=== PATIENT | male | born 1960 | race Caucasian/White ===

== ENCOUNTER → 2016-04-07 | Outpatient (CLI) | payer MEDICAID | LOC: OD 09:56 | PROVIDERS: ATTEND Family Medicine | DX: M25.571 Pain in right ankle and joints of right foot (principal) ==

== ENCOUNTER → 2016-04-19 | Outpatient (CLI) | payer MEDICAID | LOC: RAD 14:10 | PROVIDERS: ATTEND Family Medicine | DX: M51.36 Other intervertebral disc degeneration, lumbar region (principal); N63 Unspecified lump in breast | CPT/HCPCS: 72148; 82565 ==

== ENCOUNTER → 2016-05-04 | Outpatient (CLI) | payer MEDICAID | LOC: WI 08:14 | PROVIDERS: ATTEND Family Medicine | DX: M51.36 Other intervertebral disc degeneration, lumbar region (principal); N63 Unspecified lump in breast | CPT/HCPCS: 76641; G0204; 77066 ==

== ENCOUNTER 2017-05-19 16:39 | Inpatient (IN) | payer MEDICAID ==
[2017-05-19] MEDS ORDERED: ACETAMINOPHEN 325 MG TABLET PO ONE (16:58)
[2017-05-19] MEDS ORDERED: CEFTRIAXONE INJ 1000 MG VIAL IV ONE (16:58)
--- NOTE | 2017-05-19 17:14 | ER Document Report ---
ED Medical Screen (RME) - General Chief Complaint: Fever Stated Complaint: DIFFICULTY BREATHING Time Seen by Provider: 05/19/17 16:58 Mode of Arrival: Wheelchair Information source: Patient Notes: 56-year-old male presents with complaints of fever cough yellow productive shortness of breath nausea vomiting diarrhea headache of 4 day duration patient noted to be febrile tachycardic hypoxic upon arrival I have greeted and performed a rapid initial assessment of this patient. A comprehensive ED assessment and evaluation of the patient, analysis of test results and completion of the medical decision making process will be conducted by additional ED providers. PHYSICAL EXAMINATION: GENERAL:ill-appearing, HEAD: Atraumatic, normocephalic. EYES: Pupils equal round extraocular movements intact, conjunctiva are normal. ENT: Nares patent NECK: Normal range of motion LUNGS:crackles at the right base Musculoskeletal: Normal range of motion NEUROLOGICAL: Normal speech, normal gait. PSYCH: Normal mood, normal affect. SKIN: Warm, Dry, normal turgor, no rashes or lesions noted. TRAVEL OUTSIDE OF THE [place] IN LAST 30 DAYS: No - Related Data Allergies/Adverse Reactions: erythromycin base Allergy (Verified 08/27/15 15:02) Past Medical History - Social History Chew tobacco use (# tins/day): No Frequency of alcohol use: None Drug Abuse: None - Past Medical History Cardiac Medical History: Reports: Hx DVT, Hx Hypertension Renal/ Medical History: Denies: Hx Peritoneal Dialysis Malignancy Medical History: Reports Hx Renal (Kidney) Cancer GI Medical History: Reports: Hx Gastroesophageal Reflux Disease Musculoskeltal Medical History: Reports Hx Arthritis Traumatic Medical History: Reports: Hx Fractures Past Surgical History: Reports: Hx Orthopedic Surgery - right ankle, Hx Tonsillectomy Physical Exam - Vital signs Vitals: Temp Pulse Resp BP Pulse Ox 101.0 F H 117 H 16 135/83 H 93 05/19/17 16:52 05/19/17 16:52 05/19/17 16:52 05/19/17 16:52 05/19/17 16:52 Course - Vital Signs Vital signs: Temp Pulse Resp BP Pulse Ox 101.0 F H 117 H 16 135/83 H 93 05/19/17 16:52 05/19/17 16:52 05/19/17 16:52 05/19/17 16:52 05/19/17 16:52
[2017-05-19 17:56] LABS: VENOUS BLOOD BASE EXCESS 3.3 mmol/L; VENOUS BLOOD PCO2 42.6 mmHg (35-63); VENOUS BLOOD PH 7.44 (7.30-7.42)
[2017-05-19 17:58] LABS: ABSOLUTE LYMPHOCYTES (AUTO) 1.7 10^3/uL (0.5-4.7); ABSOLUTE MONOCYTES (AUTO) 0.7 10^3/uL (0.1-1.4); ABSOLUTE NEUT (AUTO) 16.6 10^3/uL (1.7-8.2); BASOPHILS % (AUTO) 0.1 % (0-2); EOSINOPHILS % (AUTO) 0.1 % (0-6); HEMOGLOBIN 15.6 g/dL (13.5-17.0); MEAN CORPUSCULAR HEMOGLOBIN 30.7 pg (27.0-33.4); MEAN CORPUSCULAR HGB CONC 34.7 g/dL (32.0-36.0); MEAN CORPUSCULAR VOLUME 89 fl (80-97); MONOCYTES % (AUTO) 3.6 % (3-13); PLATELET COUNT 172 10^3/uL (150-450); RED BLOOD COUNT 5.07 10^6/uL (4.35-5.55); RED CELL DISTRIBUTION WIDTH 13.2 % (11.5-14.0); SEGMENTED NEUTROPHILS % (AUTO) 87.2 % (42-78); TOTAL CELLS COUNTED % (AUTO) 100 %
[2017-05-19 18:18] LABS: INTERNATIONAL RATION (INR) 1.01
[2017-05-19 18:20] LABS: ALANINE AMINOTRANSFERASE 26 U/L (21-72); ALBUMIN 4.4 g/dL (3.5-5.0); ALKALINE PHOSPHATASE 68 U/L (38-126); ANION GAP 12 (5-19); ASPARTATE AMINO TRANSFERASE 16 U/L (17-59); BILIRUBIN,DIRECT 0.4 mg/dL (0.0-0.4); BILIRUBIN,TOTAL 1.1 mg/dL (0.2-1.3); BLOOD UREA NITROGEN 18 mg/dL (7-20); CALCIUM 9.8 mg/dL (8.4-10.2); CARBON DIOXIDE 27 mmol/L (22-30); CHLORIDE 100 mmol/L (98-107); GLUCOSE 123 mg/dL (75-110); POTASSIUM 4.8 mmol/L (3.6-5.0); SODIUM 138.8 mmol/L (137-145); TOTAL PROTEIN 7.6 g/dL (6.3-8.2)
--- NOTE | 2017-05-19 18:24 | RADIOLOGY REPORT (SQ) ---
EXAM DESCRIPTION: CHEST PA/LAT COMPLETED DATE/TIME: 05/19/2017 6:11 pm REASON FOR STUDY: fever cough , hypoxemia COMPARISON: 03/08/2009 EXAM PARAMETERS: NUMBER OF VIEWS: two views TECHNIQUE: Digital Frontal and Lateral radiographic views of the chest acquired. RADIATION DOSE: NA LIMITATIONS: none FINDINGS: LUNGS AND PLEURA: Multifocal airspace disease most notably involving the right upper lobe and right middle lobe. MEDIASTINUM AND HILAR STRUCTURES: No masses or contour abnormalities. HEART AND VASCULAR STRUCTURES: Heart normal size. No evidence for failure. BONES: No acute findings. HARDWARE: None in the chest. OTHER: No other significant finding. IMPRESSION: MULTIFOCAL AIRSPACE DISEASE COMPATIBLE WITH PNEUMONIA. RECOMMEND FOLLOWUP RADIOGRAPHS 4 TO 6 WEEKS TO ENSURE RESOLUTION. TECHNICAL DOCUMENTATION: JOB ID: [id number] [employer]- All Rights Reserved Reading location - IP/workstation name: [email or web address]
--- NOTE | 2017-05-19 18:38 | ER Document Report ---
ED Fever - General Chief Complaint: Fever Stated Complaint: DIFFICULTY BREATHING Time Seen by Provider: 05/19/17 16:58 Mode of Arrival: Wheelchair Notes: 56-year-old male recent history of feeling sick. History of what he describes as flu several days ago. Began having chest pain and shortness of breath. Intermittent smoker. Fever at home. Has a previous history of blood clots in his legs. Denies any recent skin infections, dog bites, human bites, trauma or any other issues. TRAVEL OUTSIDE OF THE [place] IN LAST 30 DAYS: No - HPI Severity: Moderate Pain Level: 3 - Related Data Allergies/Adverse Reactions: erythromycin base Allergy (Verified 08/27/15 15:02) Past Medical History - General Information source: Patient - Social History Smoking Status: Current Every Day Smoker Chew tobacco use (# tins/day): No Frequency of alcohol use: None Drug Abuse: None Lives with: Family Family History: Reviewed & Not Pertinent Patient has suicidal ideation: No Patient has homicidal ideation: No - Past Medical History Cardiac Medical History: Reports: Hx DVT, Hx Hypertension Renal/ Medical History: Denies: Hx Peritoneal Dialysis Malignancy Medical History: Reports Hx Renal (Kidney) Cancer GI Medical History: Reports: Hx Gastroesophageal Reflux Disease Musculoskeltal Medical History: Reports Hx Arthritis Traumatic Medical History: Reports: Hx Fractures Past Surgical History: Reports: Hx Orthopedic Surgery - right ankle, Hx Tonsillectomy Review of Systems - Review of Systems Constitutional: Fever, Malaise, Weakness EENT: No symptoms reported Cardiovascular: Chest pain, Palpitations, Dizziness, Lightheaded Respiratory: Cough, Short of breath, Wheezing Gastrointestinal: denies: Abdominal pain, Diarrhea, Nausea, Vomiting Genitourinary: denies: Burning, Dysuria, Discharge Musculoskeletal: denies: Back pain, Joint pain, Muscle pain Skin: denies: Dryness, Lesions, Lumps, Rash Hematologic/Lymphatic: Blood clots. denies: Anemia, Easy bleeding, Easy bruising Neurological/Psychological: denies: Confusion, Weakness, Numbness Physical Exam - Vital signs Vitals: Temp Pulse Resp BP Pulse Ox 101.0 F H 117 H 16 135/83 H 93 05/19/17 16:52 05/19/17 16:52 05/19/17 16:52 05/19/17 16:52 05/19/17 16:52 Interpretation: Tachycardic - General General appearance: Appears well, Alert - HEENT Head: Normocephalic, Atraumatic Eyes: Normal Pupils: PERRL - Respiratory Respiratory status: No respiratory distress Chest status: Nontender Breath sounds: Nonproductive cough, Rales Chest palpation: Normal - Cardiovascular Rhythm: Tachycardia Heart sounds: Normal auscultation Murmur: No - Abdominal Inspection: Normal Distension: No distension Bowel sounds: Normal Tenderness: Nontender Organomegaly: No organomegaly - Back Back: Normal, Nontender - Extremities General upper extremity: Normal inspection, Nontender, Normal color, Normal ROM , Normal temperature General lower extremity: Normal inspection, Nontender, Normal color, Normal ROM , Normal temperature, Normal weight bearing. No: Araceli's sign - Neurological Neuro grossly intact: Yes Cognition: Normal Orientation: AAOx4 Ha Coma Scale Eye Opening: Spontaneous [place] Coma Scale Verbal: Oriented [place] Coma Scale Motor: Obeys Commands [place] Coma Scale Total: 15 Speech: Normal Motor strength normal: LUE, RUE, LLE, RLE Sensory: Normal - Psychological Associated symptoms: Normal affect, Normal mood - Skin Skin Temperature: Warm Skin Moisture: Dry Skin Color: Normal Course - Re-evaluation Re-evalutation: 05/19/17 18:38 Patient with evidence of pneumonia based on WBC count, auscultation as well as chest x-ray. Started on IV antibiotics at this time. Need to be admitted. 05/19/17 19:15 Consulted the hospitalist. IV antibiotics started will admit to telemetry at this time. We will go ahead and add a CT angiogram based on his history of blood clots. - Vital Signs Vital signs: Temp Pulse Resp BP Pulse Ox 101.0 F H 117 H 12 145/83 H 95 05/19/17 16:52 05/19/17 16:52 05/19/17 19:01 05/19/17 19:00 05/19/17 19:01 - Laboratory Result Diagrams: 05/19/17 17:30 05/19/17 17:30 Laboratory results interpreted by me: 05/19/17 05/19/17 05/19/17 17:21 17:30 17:30 WBC 19.0 H Seg Neutrophils % 87.2 H Lymphocytes % 9.0 L Absolute Neutrophils 16.6 H VBG pH Glucose 123 H POC Glucose 125 H AST 16 L Urine Protein Urine Ketones Urine Blood Urine Urobilinogen 05/19/17 05/19/17 17:30 18:20 WBC Seg Neutrophils % Lymphocytes % Absolute Neutrophils VBG pH 7.44 H Glucose POC Glucose AST Urine Protein 100 H Urine Ketones TRACE H Urine Blood SMALL H Urine Urobilinogen 4.0 H - EKG Interpretation by Me EKG shows normal: [place], Intervals, QRS Complexes, ST-T Waves Rate: Tachycardia Discharge - Discharge Clinical Impression: Pneumonia Qualifiers: Pneumonia type: due to unspecified organism Laterality: bilateral Lung location : unspecified part of lung Qualified Code(s): J18.9 - Pneumonia, unspecified organism Disposition: ADMITTED INPATIENT Admitting Provider: Hospitalist - [facility] Admitted: Telemetry
[2017-05-19] MEDS: NORMAL SALINE 1000 ML 1,000 ML IV PRN ×4 (18:39→22:36)
[2017-05-19 19:12] LABS: APPEARANCE,URINE CLEAR; BILIRUBIN,URINE NEGATIVE (NEGATIVE); COLOR,URINE YELLOW; GLUCOSE, URINE NEGATIVE (NEGATIVE); KETONES,URINE TRACE mg/dL (NEGATIVE); LEUKOCYTE ESTERASE,URINE NEGATIVE (NEGATIVE); NITRITE,URINE NEGATIVE (NEGATIVE); PROTEIN,URINE 100 mg/dL (NEGATIVE)
[2017-05-19] MEDS ORDERED: KETOROLAC TROMETHAMINE INJ/PF 30 MG/1 ML SDV IV ONE (19:21)
[2017-05-19] MEDS ORDERED: IPRATROPIUM/ALBUTEROL 0.5-2.5 MG/3 ML AMPUL NEB ONE (19:21)
[2017-05-19] MEDS ORDERED: ACETAMINOPHEN 325 MG TABLET PO PRN (19:55)
[2017-05-19] MEDS ORDERED: PROMETHAZINE HCL INJ 25 MG/1 ML VIAL IV PRN (19:55)
[2017-05-19] MEDS ORDERED: LEVOFLOXACIN 750 MG/D5W RTU 750 MG/150 ML RTUPB IV SCH (20:00)
[2017-05-19] MEDS: LEVOFLOXACIN 750 MG/D5W RTU 750 MG/150 ML RTUPB IV SCH (20:17)
--- NOTE | 2017-05-19 20:41 | RADIOLOGY REPORT (SQ) ---
EXAM DESCRIPTION: CTA CHEST COMPLETED DATE/TIME: 05/19/2017 8:29 pm REASON FOR STUDY: cp, sob, hx of PE COMPARISON: Chest radiograph from 05/19/[address] from 09/02/2015. TECHNIQUE: CT scan of the chest performed using helical scanning technique with dynamic intravenous contrast injection. Images reviewed with lung, soft tissue and bone windows. Reconstructed coronal and sagittal MPR images reviewed. Additional 3 dimensional post-processing performed to develop Maximal Intensity Projection images (ME P). All images stored on PACS. All CT scanners at this facility use dose modulation, iterative reconstruction, and/or weight based d osing when appropriate to reduce radiation dose to as low as reasonably achievable (ALARA). [facility]: Dose Right [facility]: CareDose [facility]: Dose Right [facility]: Teradose 4D [facility]: 9facts CONTRAST TYPE AND DOSE: contrast/concentration: Isovue 370.00 mg/ml; Total Contrast Delivered: 67.0 ml; Total Saline Delivered: 108.1 ml Contrast bolus optimized for the pulmonary arteries. Not diagnostic for the aorta. RENAL FUNCTION: GFR > 60. RADIATION DOSE: CT Rad equipment meets quality standard of care and radiation dose reduction techniq ues were employed. CTDIvol: 13.2 - 15.9 mGy. DLP: 638 mGy-cm. . LIMITATIONS: None. FINDINGS: LUNGS AND PLEURA: Underlying emphysema. Multifocal airspace disease is seen on chest radi ograph again presumably representing pneumonia. No significant pleural effusion. No pneumothorax. AORTA AND GREAT VESSELS: No aneurysm. Contrast bolus not optimized for the aorta. HEART: No pericardial effusion. No significant coronary artery calcifications. PULMONARY ARTERIES: No emboli visualized in the main pulmonary arteries or the segmental branches. HILAR AND MEDIASTINAL STRUCTURES: No identified masses or abnormal nodes. HARDWARE: None in the chest. UPPER ABDOMEN: No significant findings. Limited exam. THYROID AND OTHER SOFT TISSUES: No masses. No adenopathy. BONES: No acute or significant finding. 3D MIPS: Confirm above findings. OTHER: No other significant finding. IMPRESSION: MULTIFOCAL AIRSPACE DISEASE SEEN ON CHEST X-RAY AGAIN CONSISTENT WITH PNEUMONIA GIVEN HISTORY OF FEVER AND COUGH. FOLLOW CHEST RADIOGRAPH AGAIN RECOMMENDED 4 TO 6 WEEKS TO ENSURE COMPLE TE RESOLUTION. NO PULMONARY EMBOLI COMMENT: Quality ID # [id number]: Final reports with documentation of one or more dose reduction techniques (e.g., Automated exposure control, adjustment of the mA and/or kV according to patient size, use of iterative reconstruction technique) TECHNICAL DOCUMENTATION: JOB ID: [id number] [employer]- All Rights Reserved Reading location - IP/workstation name: [email or web address]
[2017-05-19] MEDS ORDERED: OXYCODONE-ACETAMINOPHEN 5-325 MG TABLET PO PRN (20:51)
[2017-05-19] MEDS ORDERED: FENTANYL CITRATE INJ/PF 100 MCG/2 ML AMPUL IV ONE (20:52)
--- NOTE | 2017-05-19 21:57 | EKG REPORT ---
SEVERITY:- ABNORMAL ECG - SINUS TACHYCARDIA PROBABLE LEFT ATRIAL ABNORMALITY : Confirmed by: Mariola Medellin 19-May-2017 21:56:42
[2017-05-19] MEDS: HEPARIN SOD (PORCINE) 5,000 UNIT/ML 1 ML SYRINGE SUBCUT SCH (22:35)
--- NOTE | 2017-05-19 23:53 | PDOC H&P ---
History of Present Illness Admission Date/PCP: 05/19/17 19:33 Patient complains of: Intermittent fever and worsening right-sided chest pain for the last 4 days. History of Present Illness: ANTHONY BEASLEY is a 56 year old male with history of renal cell carcinoma ( post right partial nephrectomy), DVT and hypertension was admitted with above- mentioned complaints. According to the patient, he had cold-like symptoms for couple of days last week which eventually resolved. However, he started having "tearing" right-sided chest pain for the last 4 days which got worse today. He also has been having intermittent fevers and chills and shortness of breath but no cough, sore throat or runny nose. He is up-to-date with his flu vaccine. He said that his son had upper respiratory infection a week or so ago. He denied any abdominal pain but complained of having multiple bouts of nausea and vomiting 2 days ago for couple of days and diarrhea for one, no hematemesis , hematochezia or melena. He denied any urinary symptoms or focal weakness. In the ED, his temperature was 101.0, heart rate 117, respiratory rate 16, blood pressure 135/83 with oxygen saturation of 93% on room air. His WBC was 19.0 his lactic acid was 1.6. A CXR was done which showed right upper lobe lobe and right middle lobe airspace disease compatible with pneumonia. A CAT scan angiogram of the chest was also ordered (results pending at this time). He received DuoNeb treatment 1 and 2 g Rocephin 1. Past Medical History Cardiac Medical History: Reports: DVT, Hypertension Malignancy Medical History: Reports: Renal (Kidney) Cancer GI Medical History: Reports: Gastroesophageal Reflux Disease Musculoskeltal Medical History: Reports: Arthritis Past Surgical History Past Surgical History: Reports: Orthopedic Surgery - right ankle sx and metal removal on 05/2016., Tonsillectomy, Other - Left inguinal hernia repair and right partial nephrectomy. Social History Lives with: Family Smoking Status: Current Every Day Smoker Cigarettes Packs Per Day: 0.5 - He smokes 1 pack every 3-5 days since he was a teenager. Frequency of Alcohol Use: Rare Hx Recreational Drug Use: No - Advance Directive Resuscitation Status: Full Code Family History Parental Family History Reviewed: Yes - Mother: Diabetes. Children Family History Reviewed: No Sibling(s) Family History Reviewed.: Yes Medication/Allergy Home Medications: Lisinopril [Prinivil 10 mg Tablet] 10 mg PO DAILY 05/19/17 Oxycodone HCl 15 mg PO Q6 05/19/17 Pregabalin [Lyrica 75 mg Capsule] 75 mg PO Q8 05/19/17 Allergies/Adverse Reactions: erythromycin base Allergy (Verified 08/27/15 15:02) Review of Systems ROS unobtainable: Other - Pertinent positives and negatives as detailed in the HPI. Physical Exam Vital Signs: Temp Pulse Resp BP Pulse Ox 101.0 F H 117 H 12 145/83 H 95 05/19/17 16:52 05/19/17 16:52 05/19/17 19:01 05/19/17 19:00 05/19/17 19:01 General appearance: PRESENT: mild distress, well-developed, well-nourished Head exam: PRESENT: atraumatic, normocephalic Eye exam: PRESENT: conjunctiva pink, PERRLA. ABSENT: scleral icterus Mouth exam: PRESENT: moist, neck supple Neck exam: PRESENT: full ROM. ABSENT: JVD Respiratory exam: PRESENT: decreased breath sounds. ABSENT: rales, rhonchi, wheezes Cardiovascular exam: PRESENT: RRR, +S1, +S2 Pulses: PRESENT: normal dorsalis pedis pul GI/Abdominal exam: PRESENT: normal bowel sounds, soft. ABSENT: distended, rebound, tenderness Rectal exam: PRESENT: deferred Extremities exam: ABSENT: pedal edema Musculoskeletal exam: PRESENT: full ROM Neurological exam: PRESENT: alert, altered, awake. ABSENT: motor sensory deficit - grossly. Skin exam: PRESENT: dry, warm. ABSENT: erythema, rash Results Laboratory Results: CBC: WBC 19.0, hemoglobin 15.6, hematocrit 45.0, MCV 89, RDW 13.2, platelets 172. PT/INR 14.0/1.01. VBG: PH 7.44/PCO2 42.6/bicarb 28.0. CMP: Sodium 138.8, potassium 4.8, chloride 100, bicarb 27, anion gap 12, BUN 18 , creatinine 0.78, glucose 123, lactic acid 1.6, liver enzymes within normal limits. UA: Negative. EKG Comments: 12 lead EKG, sinus rhythm, ventricular rate 100, axis +40, QTc prolongation, possible LVH, no acute changes. When compared to a previous twelve-lead EKG on 09/02/2015 except ventricular rate 85. Impressions: Chest X-Ray 05/19/17 16:58 IMPRESSION: MULTIFOCAL AIRSPACE DISEASE COMPATIBLE WITH PNEUMONIA. RECOMMEND FOLLOWUP RADIOGRAPHS 4 TO 6 WEEKS TO ENSURE RESOLUTION. Assessment & Plan - Diagnosis (1) Multifocal pneumonia Is this a current diagnosis for this admission?: Yes Plan: Chest x-ray reviewed. We will follow-up CAT scan angiogram of the chest. We will start Levaquin and follow-up blood cultures. (2) Sepsis Qualifiers: Sepsis type: sepsis due to unspecified organism Qualified Code(s): A41.9 - Sepsis, unspecified organism Is this a current diagnosis for this admission?: Yes Plan: by criteria given fever, tachycardia, leukocytosis in the setting of pneumonia, but the patient does not look clinically septic. Will continue management as mentioned above and repeat lactic acid. His UA was negative. (3) Right-sided chest pain Is this a current diagnosis for this admission?: Yes Plan: Pleuritic. Management as mentioned in #1 (4) Essential hypertension Is this a current diagnosis for this admission?: No Plan: We will resume his lisinopril and continue to monitor. (5) Smoker Is this a current diagnosis for this admission?: Yes Plan: 1 pack a day every 3-5 days for many years. Nicotine patch if the patient is agreeable. - Time Time Spent: 50 to 70 Minutes Anticipated discharge: Home - Inpatient Certification Based on my medical assessment, after consideration of the patient's comorbidities, presenting symptoms, or acuity I expect that the services needed warrant INPATIENT care.: Yes I certify that my determination is in accordance with my understanding of Medicare's requirements for reasonable and necessary INPATIENT services [42 CFR 412.3e].: Yes
[2017-05-20] MEDS ORDERED: OXYCODONE HCL IR 5 MG TABLET PO ONE (02:00)
[2017-05-20] MEDS: HEPARIN SOD (PORCINE) 5,000 UNIT/ML 1 ML SYRINGE SUBCUT SCH (05:47)
[2017-05-20] MEDS: PREGABALIN 75 MG CAPSULE PO SCH ×3 (05:47→21:38)
[2017-05-20] MEDS: ALBUTEROL SULFATE 0.083% NEB 2.5 MG/3 ML AMPUL NEB PRN (06:19)
[2017-05-20 06:41] LABS: ANION GAP 11 (5-19); BLOOD UREA NITROGEN 14 mg/dL (7-20); CALCIUM 8.5 mg/dL (8.4-10.2); CARBON DIOXIDE 22 mmol/L (22-30); CHLORIDE 108 mmol/L (98-107); GLUCOSE 92 mg/dL (75-110); POTASSIUM 4.3 mmol/L (3.6-5.0); SODIUM 140.5 mmol/L (137-145)
[2017-05-20 06:53] LABS: HEMATOCRIT 37.6 % (37.9-51.0); MEAN CORPUSCULAR HEMOGLOBIN 30.3 pg (27.0-33.4); MEAN CORPUSCULAR HGB CONC 34.5 g/dL (32.0-36.0); MEAN CORPUSCULAR VOLUME 88 fl (80-97); PLATELET COUNT 136 10^3/uL (150-450); RED BLOOD COUNT 4.29 10^6/uL (4.35-5.55); WHITE BLOOD COUNT 12.9 10^3/uL (4.0-10.5)
[2017-05-20] MEDS: OXYCODONE HCL IR 5 MG TABLET PO PRN ×3 (08:21→21:38)
[2017-05-20] MEDS: LISINOPRIL 10 MG TABLET PO SCH (09:58)
--- NOTE | 2017-05-20 11:25 | PDOC PROGRESS REPORT ---
Subjective Progress Note for:: 05/20/17 Subjective:: Pt states that he is having right sided chest wall pain worse with coughing. Pt states that he has not had any additional fevers since time of admission. Pt states that he has been trying to cut back on tobacco use. Reason For Visit: SEPSIS/RIGHT-SIDED PNEUMONIA Physical Exam Vital Signs: Temp Pulse Resp BP Pulse Ox 98.7 F 93 16 128/62 H 92 05/20/17 07:47 05/20/17 07:47 05/20/17 07:47 05/20/17 07:47 05/20/17 07:47 Intake & Output 05/19/17 05/20/17 05/21/17 06:59 06:59 06:59 Intake Total 1010 Output Total 400 Balance 610 General appearance: PRESENT: no acute distress, well-developed, well-nourished Head exam: PRESENT: atraumatic, normocephalic Eye exam: PRESENT: conjunctiva pink, EOMI. ABSENT: scleral icterus Ear exam: PRESENT: normal external ear exam Mouth exam: PRESENT: moist, tongue midline Neck exam: ABSENT: carotid bruit, JVD, lymphadenopathy, thyromegaly Respiratory exam: PRESENT: decreased breath sounds - on right side. Good breath sounds heard on left side.. ABSENT: rales, rhonchi, wheezes Pulses: PRESENT: normal dorsalis pedis pul Vascular exam: PRESENT: normal capillary refill GI/Abdominal exam: PRESENT: normal bowel sounds, soft. ABSENT: distended, guarding, mass, organolmegaly, rebound, tenderness Rectal exam: PRESENT: deferred Extremities exam: PRESENT: full ROM. ABSENT: calf tenderness, clubbing, pedal edema Musculoskeletal exam: PRESENT: full ROM Neurological exam: PRESENT: alert, awake, oriented to person, oriented to place , oriented to time, oriented to situation, CN II-XII grossly intact. ABSENT: motor sensory deficit Psychiatric exam: PRESENT: appropriate affect, normal mood. ABSENT: homicidal ideation, suicidal ideation Skin exam: PRESENT: dry, intact, warm. ABSENT: cyanosis, rash Results Laboratory Results: 05/20/17 06:09 05/20/17 06:09 05/20/17 05/20/17 06:09 06:09 WBC 12.9 H RBC 4.29 L Hgb 13.0 L D Hct 37.6 L MCV 88 MCH 30.3 MCHC 34.5 RDW 13.0 Plt Count 136 L Sodium 140.5 Potassium 4.3 Chloride 108 H Carbon Dioxide 22 Anion Gap 11 BUN 14 Creatinine 0.64 Est GFR ( Amer) > 60 Est GFR (Non-Af Amer) > 60 Glucose 92 Calcium 8.5 Impressions: Chest X-Ray 05/19/17 16:58 IMPRESSION: MULTIFOCAL AIRSPACE DISEASE COMPATIBLE WITH PNEUMONIA. RECOMMEND FOLLOWUP RADIOGRAPHS 4 TO 6 WEEKS TO ENSURE RESOLUTION. Chest/Abdomen CTA 05/19/17 19:08 IMPRESSION: MULTIFOCAL AIRSPACE DISEASE SEEN ON CHEST X-RAY AGAIN CONSISTENT WITH PNEUMONIA GIVEN HISTORY OF FEVER AND COUGH. FOLLOW CHEST RADIOGRAPH AGAIN RECOMMENDED 4 TO 6 WEEKS TO ENSURE COMPLETE RESOLUTION. NO PULMONARY EMBOLI Assessment & Plan - Diagnosis (1) Sepsis Qualifiers: Sepsis type: sepsis due to unspecified organism Qualified Code(s): A41.9 - Sepsis, unspecified organism Is this a current diagnosis for this admission?: Yes Plan: Secondary to her right upper and middle lobe infiltrate in setting of fever, tachypnea, identified source, leukocytosis: Continue with Levaquin (2) Multifocal pneumonia Is this a current diagnosis for this admission?: Yes Plan: Secondary to her right upper and middle lobe infiltrate in setting of fever, tachypnea, identified source, leukocytosis: Continue with Levaquin (3) Tobacco dependence Is this a current diagnosis for this admission?: Yes Plan: Encourage discontinuation of tobacco use. (4) Leukocytosis Is this a current diagnosis for this admission?: Yes Plan: Secondary to Pneumonia: Resolving. (5) Moderate protein-calorie malnutrition Is this a current diagnosis for this admission?: Yes Plan: Encourage Good PO intake. (6) Thrombocytopenia Is this a current diagnosis for this admission?: Yes Plan: Will discontinue Heparin. Will write for SCDs. (7) Essential hypertension Is this a current diagnosis for this admission?: No Plan: Will continue to monitor. (8) DVT prophylaxis Is this a current diagnosis for this admission?: Yes Plan: SCDs - Time Time Spent with patient: 25-34 minutes
[2017-05-20] MEDS: LEVOFLOXACIN 750 MG/D5W RTU 750 MG/150 ML RTUPB IV SCH (20:10)
[2017-05-21 04:53] LABS: ABSOLUTE BASOPHILS # (AUTO) 0.1 10^3/uL (0.0-0.2); ABSOLUTE EOSINOPHILS # (AUTO) 0.1 10^3/uL (0.0-0.6); ABSOLUTE LYMPHOCYTES (AUTO) 2.3 10^3/uL (0.5-4.7); ABSOLUTE MONOCYTES (AUTO) 0.7 10^3/uL (0.1-1.4); BASOPHILS % (AUTO) 0.6 % (0-2); EOSINOPHILS % (AUTO) 0.9 % (0-6); HEMATOCRIT 37.3 % (37.9-51.0); LYMPHOCYTES % (AUTO) 25.6 % (13-45); MEAN CORPUSCULAR HEMOGLOBIN 30.5 pg (27.0-33.4); MEAN CORPUSCULAR HGB CONC 34.8 g/dL (32.0-36.0); MEAN CORPUSCULAR VOLUME 88 fl (80-97); MONOCYTES % (AUTO) 7.9 % (3-13); PLATELET COUNT 184 10^3/uL (150-450); RED BLOOD COUNT 4.26 10^6/uL (4.35-5.55); RED CELL DISTRIBUTION WIDTH 13.1 % (11.5-14.0); TOTAL CELLS COUNTED % (AUTO) 100 %; WHITE BLOOD COUNT 9.2 10^3/uL (4.0-10.5)
[2017-05-21 05:16] LABS: ALANINE AMINOTRANSFERASE 22 U/L (21-72); ALBUMIN 3.1 g/dL (3.5-5.0); ALKALINE PHOSPHATASE 45 U/L (38-126); ANION GAP 10 (5-19); ASPARTATE AMINO TRANSFERASE 11 U/L (17-59); BILIRUBIN,DIRECT 0.7 mg/dL (0.0-0.4); BILIRUBIN,TOTAL 0.8 mg/dL (0.2-1.3); BLOOD UREA NITROGEN 13 mg/dL (7-20); CALCIUM 8.7 mg/dL (8.4-10.2); CARBON DIOXIDE 21 mmol/L (22-30); CHLORIDE 111 mmol/L (98-107); GLUCOSE 90 mg/dL (75-110); POTASSIUM 4.2 mmol/L (3.6-5.0); SODIUM 142.1 mmol/L (137-145)
[2017-05-21] MEDS: PREGABALIN 75 MG CAPSULE PO SCH (05:37)
[2017-05-21] MEDS: OXYCODONE HCL IR 5 MG TABLET PO PRN ×2 (05:37→11:03)
[2017-05-21] MEDS: NORMAL SALINE 1000 ML 1,000 ML IV PRN (05:41)
[2017-05-21 06:27] VITALS: BP 146/72
[2017-05-21] MEDS: ALBUTEROL SULFATE 0.083% NEB 2.5 MG/3 ML AMPUL NEB PRN (08:52)
[2017-05-21] MEDS: LISINOPRIL 10 MG TABLET PO SCH (09:29)
--- NOTE | 2017-05-21 10:59 | PDOC DISCHARGE SUMMARY ---
General - Admit/Disc Date/PCP Admission Date/Primary Care Provider: 05/19/17 19:33 Discharge Date: 05/21/17 - Discharge Diagnosis (1) Essential hypertension Is this a current diagnosis for this admission?: Yes (2) Pneumonia Is this a current diagnosis for this admission?: Yes (3) Sepsis Is this a current diagnosis for this admission?: Yes (4) Tobacco dependence Is this a current diagnosis for this admission?: Yes - Additional Information Resuscitation Status: Full Code Discharge Diet: As Tolerated Discharge Activity: Activity As Tolerated Prescriptions: Levofloxacin [Levaquin 500 mg Tablet] 500 mg PO DAILY 5 Days #5 tablet Prednisone 40 mg PO DAILY 5 Days #20 tablet Home Medications: Lisinopril [Prinivil 10 mg Tablet] 10 mg PO DAILY 05/19/17 Oxycodone HCl 15 mg PO Q6 05/19/17 Pregabalin [Lyrica 75 mg Capsule] 75 mg PO Q8 05/19/17 Levofloxacin [Levaquin 500 mg Tablet] 500 mg PO DAILY 5 Days #5 tablet 05/21/17 Prednisone 40 mg PO DAILY 5 Days #20 tablet 05/21/17 History of Present Illness History of Present Illness: ANTHONY BEASLEY is a 56 year old male Hospital Course Hospital Course: During his admission he has progressed well. Initially he presented with fever and cough. CT of the chest revealed multifocal pneumonia. His chest pain has resolved. He has been afebrile for greater than 24 hours. He has been weaned of oxygen. He still has some shortness of breath with ambulation but is doing much better. He needs to complete several days of oral steroids and antibiotics. He will need to follow with his PCP in the next 2-3 days. He will need to have a repeat CXR in 4-6 weeks to ensure resolution. Physical Exam Vital Signs: Temp Pulse Resp BP Pulse Ox 98.8 F 72 17 146/72 H 94 05/21/17 04:00 05/21/17 07:00 05/21/17 04:00 05/21/17 04:00 05/21/17 04:00 Intake & Output 05/20/17 05/21/17 05/22/17 06:59 06:59 06:59 Intake Total 1010 3436 Output Total 400 250 Balance 610 3186 Weight 75.5 kg General appearance: PRESENT: no acute distress, cooperative, thin Head exam: PRESENT: atraumatic, normocephalic Mouth exam: PRESENT: moist, tongue midline Throat exam: ABSENT: tonsillar erythema Neck exam: ABSENT: carotid bruit, JVD, lymphadenopathy, thyromegaly Respiratory exam: PRESENT: wheezes. ABSENT: accessory muscle use, chest wall tenderness, rales, rhonchi Cardiovascular exam: PRESENT: RRR. ABSENT: diastolic murmur, rubs, systolic murmur Pulses: PRESENT: normal dorsalis pedis pul Vascular exam: PRESENT: normal capillary refill GI/Abdominal exam: PRESENT: normal bowel sounds, soft. ABSENT: distended, guarding, mass, organolmegaly, rebound, tenderness Neurological exam: PRESENT: alert, awake, oriented to person, oriented to place , oriented to time, oriented to situation, CN II-XII grossly intact. ABSENT: motor sensory deficit Results Laboratory Results: 05/21/17 04:12 05/21/17 04:12 05/20/17 05/20/17 05/21/17 12:15 18:57 04:12 WBC 9.2 RBC 4.26 L Hgb 13.0 L Hct 37.3 L MCV 88 MCH 30.5 MCHC 34.8 RDW 13.1 Plt Count 184 Seg Neutrophils % 65.0 Lymphocytes % 25.6 Monocytes % 7.9 Eosinophils % 0.9 Basophils % 0.6 Absolute Neutrophils 6.0 Absolute Lymphocytes 2.3 Absolute Monocytes 0.7 Absolute Eosinophils 0.1 Absolute Basophils 0.1 Sodium Potassium Chloride Carbon Dioxide Anion Gap BUN Creatinine Est GFR ( Amer) Est GFR (Non-Af Amer) Glucose Lactic Acid 1.2 1.3 Calcium Total Bilirubin AST ALT Alkaline Phosphatase Total Protein Albumin 05/21/17 04:12 WBC RBC Hgb Hct MCV MCH MCHC RDW Plt Count Seg Neutrophils % Lymphocytes % Monocytes % Eosinophils % Basophils % Absolute Neutrophils Absolute Lymphocytes Absolute Monocytes Absolute Eosinophils Absolute Basophils Sodium 142.1 Potassium 4.2 Chloride 111 H Carbon Dioxide 21 L Anion Gap 10 BUN 13 Creatinine 0.79 Est GFR ( Amer) > 60 Est GFR (Non-Af Amer) > 60 Glucose 90 Lactic Acid Calcium 8.7 Total Bilirubin 0.8 AST 11 L ALT 22 Alkaline Phosphatase 45 Total Protein 6.0 L Albumin 3.1 L Impressions: Chest X-Ray 05/19/17 16:58 IMPRESSION: MULTIFOCAL AIRSPACE DISEASE COMPATIBLE WITH PNEUMONIA. RECOMMEND FOLLOWUP RADIOGRAPHS 4 TO 6 WEEKS TO ENSURE RESOLUTION. Chest/Abdomen CTA 05/19/17 19:08 IMPRESSION: MULTIFOCAL AIRSPACE DISEASE SEEN ON CHEST X-RAY AGAIN CONSISTENT WITH PNEUMONIA GIVEN HISTORY OF FEVER AND COUGH. FOLLOW CHEST RADIOGRAPH AGAIN RECOMMENDED 4 TO 6 WEEKS TO ENSURE COMPLETE RESOLUTION. NO PULMONARY EMBOLI Qualifiers - * PATEINT BEING DISCHARGED WITH ANY OF THE FOLLOWING DIAGNOSIS?: No Plan Discharge Plan: Discharge home, F/U with PCP in 2-3 days, sooner if any concern. Time Spent: Greater than 30 Minutes
== END 2017-05-21 12:13 | disposition home or self-care (01) | DRG 871 ==
LOC: ER 16:39 → EH 19:33 → 5 22:06
PROVIDERS: ADMIT Internal Medicine Geriatric Medicine; ATTEND Internal Medicine Geriatric Medicine
PROC: 3E0F73Z Introduction of Anti-inflammatory into Respiratory Tract, Via Natural or Artificial Opening (ICD-10-PCS; principal; 2017-05-20)
DX: A41.9 Sepsis, unspecified organism (principal); J18.9 Pneumonia, unspecified organism; D69.6 Thrombocytopenia, unspecified; E44.0 Moderate protein-calorie malnutrition; I10 Essential (primary) hypertension; F17.210 Nicotine dependence, cigarettes, uncomplicated; K21.9 Gastro-esophageal reflux disease without esophagitis; M19.90 Unspecified osteoarthritis, unspecified site; Z68.22 Body mass index [BMI] 22.0-22.9, adult; Z79.899 Other long term (current) drug therapy; Z85.528 Personal history of other malignant neoplasm of kidney; Z90.5 Acquired absence of kidney; Z86.718 Personal history of other venous thrombosis and embolism; Z88.3 Allergy status to other anti-infective agents; Z83.3 Family history of diabetes mellitus
CPT/HCPCS: 36415; 71046; 71275; 80048; 80053; 81001; 82803; 82962; 83605; 85025; 85027; 85610; 87040; 87086; 93005; 93010; 94640; 96361; 96365; 99285; J0696; J1644; J1885; J1956; J3010; J7030; J7620

== ENCOUNTER 2019-07-28 11:46 | Emergency (ER) | payer OTHER, MEDICARE, MEDICAID ==
[2019-07-28] MEDS ORDERED: ASPIRIN 81 MG TABLET, CHEWABLE PO ONE (12:27)
[2019-07-28] MEDS ORDERED: IPRATROPIUM/ALBUTEROL 0.5-2.5 MG/3 ML AMPUL NEB ONE (12:29)
[2019-07-28] MEDS ORDERED: NORMAL SALINE 1000 ML 1,000 ML IV ONE (12:49)
[2019-07-28] MEDS ORDERED: NITROGLYCERIN 0.4 MG/TAB 25 TAB/BOTTLE SL PRN (12:50)
--- NOTE | 2019-07-28 12:53 | ER Document Report ---
ED Cardiac - General Stated Complaint: SHORTNESS OF BREATH, MUSCLE PAIN Time Seen by Provider: 07/28/19 11:49 Primary Care Provider: LASHAWN MANRIQUE DO [Primary Care Provider] - Follow up tomorrow Mode of Arrival: Ambulatory Information source: Patient Notes: Patient presents complaining of shortness of breath with left anterior chest pain. Patient states the pain did radiate to the left side of the neck. Patient started 3 days ago and has been constant. Patient states that pain is a shredding, tearing pain that he feels is within his chest muscles. Patient denies any nausea vomiting or fever. TRAVEL OUTSIDE OF THE [place] IN LAST 30 DAYS: No - HPI Patient complains to provider of: Chest pain, Shortness of breath Quality of pain: Tearing Pain level currently: 4 Chest pain precipitating factors: At Rest Cardiac risk factors: Smoker. denies: Diabetes, Hypertension, Hx [place] Associated symptoms: Neck pain. denies: Back pain, Diaphoresis, Dizziness, Lightheaded, Nausea/vomiting, Palpitations Exacerbated by: Coughing, Deep breaths, Torso movement Relieved by: Nothing Similar symptoms previously: No Recently seen / treated by doctor: No - Related Data Allergies/Adverse Reactions: erythromycin base Allergy (Verified 08/27/15 15:02) Past Medical History - General Information source: Patient - Social History Smoking Status: Current Every Day Smoker Frequency of alcohol use: None Drug Abuse: None Occupation: None Family History: Reviewed & Not Pertinent Pulmonary Medical History: Reports: Hx COPD Renal/ Medical History: Denies: Hx Peritoneal Dialysis Malignancy Medical History: Reports Hx Renal (Kidney) Cancer GI Medical History: Reports: Hx Gastroesophageal Reflux Disease Musculoskeletal Medical History: Reports Hx Arthritis Traumatic Medical History: Reports: Hx Fractures Past Surgical History: Reports: Hx Kidney (Renal Surgery) - R kidney removed, Hx Orthopedic Surgery - right ankle sx and metal removal on 05/2016., Hx Tonsillectomy, Other - Left inguinal hernia repair and right partial nephrectomy. Review of Systems - Review of Systems Constitutional: No symptoms reported. denies: Fever, Recent illness EENT: No symptoms reported Cardiovascular: Chest pain. denies: Dyspnea, Syncope, Dizziness Respiratory: Short of breath. denies: Cough Gastrointestinal: No symptoms reported. denies: Abdominal pain, Nausea, Vomiting Genitourinary: No symptoms reported Male Genitourinary: No symptoms reported Musculoskeletal: Neck pain - Chest pain radiating into the neck. denies: Back pain Skin: No symptoms reported Hematologic/Lymphatic: No symptoms reported Neurological/Psychological: No symptoms reported Physical Exam - Vital signs Vitals: Temp Pulse Resp BP Pulse Ox 97.7 F 111 H 20 141/100 H 97 07/28/19 11:58 07/28/19 11:58 07/28/19 11:58 07/28/19 11:58 07/28/19 11:58 - General General appearance: Appears well, Alert In distress: Mild - HEENT Head: Normocephalic, Atraumatic Eyes: Normal Conjunctiva: Normal Nasal: Normal Mouth/Lips: Normal Mucous membranes: Normal Neck: Normal, Supple. No: Lymphadenopathy - Respiratory Respiratory status: Other - shallow respirations Chest status: Tender, Pain with cough, Pain with deep breathing Chest palpation: Tender - L anterior chest wall pain - Cardiovascular Rhythm: Tachycardia Heart sounds: S1 appreciated, S2 appreciated - Abdominal Inspection: Normal Distension: No distension Bowel sounds: Normal Tenderness: Nontender Organomegaly: No organomegaly - Back Back: Normal, Nontender - Extremities General upper extremity: Normal inspection, Normal strength General lower extremity: Normal inspection, Normal strength - Neurological Neuro grossly intact: Yes Cognition: Normal [place] Coma Scale Eye Opening: Spontaneous [place] Coma Scale Verbal: Oriented Ha Coma Scale Motor: Obeys Commands Ha Coma Scale Total: 15 - Psychological Associated symptoms: Normal affect, Normal mood - Skin Skin Temperature: Warm Skin Moisture: Dry Skin Color: Normal Course - Re-evaluation Re-evalutation: 07/28/19 15:45 Patient states that his chest pain is improved although not completely resolved. Patient insistent that it is muscle pain and that he is concerned about possible pneumonia. Patient declines taking nitroglycerin at this time. 07/28/19 14:00 Patient advised that x-ray did not show findings worrisome for pneumonia, patient is agreeable with taking the nitroglycerin at this time. Nurse at bedside with medication. 07/28/19 14:16 Patient denies any improvement after nitroglycerin, additional pain medication ordered. 07/28/19 16:54 Patient complains of muscle pain, patient with negative initial troponin and only a small pleural effusion noted on CTA. No concern for PE or aortic dissection at this time. 07/28/19 18:09 Presentation of chest pain in an otherwise well appearing patient. Low clinical suspicion for ACS given clinical history, exam, EKG without ST elevations or depressions, and negative troponin. HEART score less than or equal to 3. No concern for aortic dissection or PE with CTA report. CXR without evidence of pneumothorax or pneumonia. No widened mediastinum. Patient does have noted small left pleural effusion. Chest pain in a patient without evidence of cardiac or other serious etiology on workup today. I discussed with patient that, based on their age, risk factors and emergency department testing today, the likelihood that their symptoms are related to a heart attack is very low. The patient demonstrates decision making capacity and has verbalized an understanding of these risks to me. Based on this, the patient has chosen to follow-up as an outpatient. Usual chest pain return precautions reviewed. The patient states understanding and agreement with this plan. Consulted with Dr. Lozada who is agreeable with discharge plan of care at this time. - Vital Signs Vital signs: Temp Pulse Resp BP Pulse Ox 98.2 F 81 20 146/82 H 98 07/28/19 18:36 07/28/19 18:36 07/28/19 18:36 07/28/19 18:36 07/28/19 18:36 - Laboratory Result Diagrams: 07/28/19 13:35 07/28/19 13:35 Laboratory results interpreted by me: 07/28/19 13:35 Sodium 136.7 L Total Bilirubin 1.4 H Labs- All tests 24 hr 07/28/19 07/28/19 07/28/19 13:35 13:35 13:35 WBC 10.4 RBC 4.56 Hgb 13.8 Hct 39.2 MCV 86 MCH 30.3 MCHC 35.2 RDW 13.8 Plt Count 193 Lymph % (Auto) 27.3 [place] % (Auto) 7.1 Eos % (Auto) 0.2 Baso % (Auto) 0.5 Absolute Neuts (auto) 6.7 Absolute Lymphs (auto) 2.8 Absolute Monos (auto) 0.7 Absolute Eos (auto) 0.0 Absolute Basos (auto) 0.1 Seg Neutrophils % 64.9 Sodium 136.7 L Potassium 4.6 Chloride 102 Carbon Dioxide 25 Anion Gap 10 BUN 20 Creatinine 0.81 Est GFR ( Amer) > 60 Est GFR (MDRD) Non-Af > 60 Glucose 101 Calcium 9.6 Magnesium 2.2 Total Bilirubin 1.4 H Direct Bilirubin 0.1 Neonat Total Bilirubin Not Reportable Neonat Direct Bilirubin Not Reportable Neonat Indirect Bili Not Reportable AST 24 ALT 20 Alkaline Phosphatase 69 Troponin I < 0.012 Total Protein 8.1 Albumin 4.5 07/28/19 16:28 WBC RBC Hgb Hct MCV MCH MCHC RDW Plt Count Lymph % (Auto) [place] % (Auto) Eos % (Auto) Baso % (Auto) Absolute Neuts (auto) Absolute Lymphs (auto) Absolute Monos (auto) Absolute Eos (auto) Absolute Basos (auto) Seg Neutrophils % Sodium Potassium Chloride Carbon Dioxide Anion Gap BUN Creatinine Est GFR ( Amer) Est GFR (MDRD) Non-Af Glucose Calcium Magnesium Total Bilirubin Direct Bilirubin Neonat Total Bilirubin Neonat Direct Bilirubin Neonat Indirect Bili AST ALT Alkaline Phosphatase Troponin I < 0.012 Total Protein Albumin - Diagnostic Test Radiology reviewed: Reports reviewed - EKG Interpretation by Vt EKG shows normal: Sinus rhythm Rate: Tachycardia When compared to previous EKG there are: No significant change Additional EKG results interpreted by me: 07/28/19 13:10 No acute ischemic changes noted, sinus tachycardia, no significant change when compared to previous EKG Discharge - Discharge Clinical Impression: Smoker, Chest wall pain, Pleural effusion Condition: Stable Disposition: HOME, SELF-CARE Instructions: Chest Wall Pain ([facility]), Pleural Effusion ([facility]) Additional Instructions: Return immediately for any new or worsening symptoms: Fever worsening pain, shortness of breath, any new or concerning symptoms Followup with your primary care provider, call tomorrow to make a followup appointment Prescriptions: Lidocaine [Lidoderm 5% (700 mg) Transdermal Patch] 1 patch TP DAILY PRN #10 adh..patch PRN Reason: Naproxen [Naprosyn 250 Nmg Tablet] 1 tab PO BID #14 tablet Inhaler,Assist Device,Accesory [Optichamber] 1 each MC Q4 PRN #1 each PRN Reason: Albuterol Sulfate [Proair Hfa Inhalation Aerosol 8.5 gm Mdi] 2 puff IH Q4 PRN #1 mdi PRN Reason: Methocarbamol [Robaxin 500 Mg Tablet] 500 mg PO QID PRN #20 tablet PRN Reason: Referrals: LASHAWN MANRIQUE DO [Primary Care Provider] - Follow up tomorrow
--- NOTE | 2019-07-28 13:12 | RADIOLOGY REPORT (SQ) ---
EXAM DESCRIPTION: CHEST SINGLE VIEW IMAGES COMPLETED DATE/TIME: 07/28/2019 12:54 pm REASON FOR STUDY: cp, sob COMPARISON: AP chest 10/24/2018, 05/19/2017 CT chest 05/19/2017 EXAM PARAMETERS: NUMBER OF VIEWS: One view. TECHNIQUE: Single frontal radiographic view of the chest acquired. RADIATION DOSE: NA LIMITATIONS: None. FINDINGS: LUNGS AND PLEURA: No opacities, masses or pneumothorax. No pleural effusion. MEDIASTINUM AND HILAR STRUCTURES: No masses. Contour normal. HEART AND VASCULAR STRUCTURES: Heart normal in size. Normal vasculature. BONES: No acute findings. HARDWARE: None in the chest. OTHER: No other significant finding. IMPRESSION: NO ACUTE RADIOGRAPHIC FINDING IN THE CHEST. TECHNICAL DOCUMENTATION: JOB ID: [id number] 2010 [employer]- All Rights Reserved Reading location - IP/workstation name: [email or web address]
[2019-07-28 13:56] LABS: ABSOLUTE BASOPHILS # (AUTO) 0.1 10^3/uL (0.0-0.2); ABSOLUTE LYMPHOCYTES (AUTO) 2.8 10^3/uL (0.5-4.7); ABSOLUTE MONOCYTES (AUTO) 0.7 10^3/uL (0.1-1.4); ABSOLUTE NEUT (AUTO) 6.7 10^3/uL (1.7-8.2); BASOPHILS % (AUTO) 0.5 % (0-2); EOSINOPHILS % (AUTO) 0.2 % (0-6); HEMATOCRIT 39.2 % (37.9-51.0); HEMOGLOBIN 13.8 g/dL (13.5-17.0); LYMPHOCYTES % (AUTO) 27.3 % (13-45); MEAN CORPUSCULAR HEMOGLOBIN 30.3 pg (27.0-33.4); MEAN CORPUSCULAR HGB CONC 35.2 g/dL (32.0-36.0); MEAN CORPUSCULAR VOLUME 86 fl (80-97); MONOCYTES % (AUTO) 7.1 % (3-13); PLATELET COUNT 193 10^3/uL (150-450); RED BLOOD COUNT 4.56 10^6/uL (4.35-5.55); RED CELL DISTRIBUTION WIDTH 13.8 % (11.5-14.0); SEGMENTED NEUTROPHILS % (AUTO) 64.9 % (42-78); TOTAL CELLS COUNTED % (AUTO) 100 %; WHITE BLOOD COUNT 10.4 10^3/uL (4.0-10.5)
[2019-07-28 14:14] LABS: ALBUMIN 4.5 g/dL (3.5-5.0); ALKALINE PHOSPHATASE 69 U/L (38-126); ANION GAP 10 (5-19); ASPARTATE AMINO TRANSFERASE 24 U/L (17-59); BILIRUBIN,DIRECT 0.1 mg/dL (0.0-0.4); BILIRUBIN,TOTAL 1.4 mg/dL (0.2-1.3); BLOOD UREA NITROGEN 20 mg/dL (7-20); CALCIUM 9.6 mg/dL (8.4-10.2); CARBON DIOXIDE 25 mmol/L (22-30); CHLORIDE 102 mmol/L (98-107); GLUCOSE 101 mg/dL (75-110); POTASSIUM 4.6 mmol/L (3.6-5.0); TOTAL PROTEIN 8.1 g/dL (6.3-8.2)
[2019-07-28] MEDS ORDERED: FENTANYL CITRATE INJ/PF 100 MCG/2 ML AMPUL IV ONE (14:15)
[2019-07-28] MEDS ORDERED: MORPHINE SULFATE 10 MG/ML INJ IV ONE (15:42)
--- NOTE | 2019-07-28 15:49 | RADIOLOGY REPORT (SQ) ---
EXAM DESCRIPTION: CTA CHEST IMAGES COMPLETED DATE/TIME: 07/28/2019 3:27 pm REASON FOR STUDY: L cp pain, sharp, tearing COMPARISON: 05/19/2017 TECHNIQUE: CT scan of the chest performed using helical scanning technique with dynamic intravenous contrast injection. Images reviewed with lung, soft tissue and bone windows. Reconstructed coronal and sagittal MPR images reviewed. Additional 3 dimensional post-processing performed to develop Maximal Intensity Projection images (CO P). All images stored on PACS. All CT scanners at this facility use dose modulation, iterative reconstruction, and/or weight based d osing when appropriate to reduce radiation dose to as low as reasonably achievable (ALARA). [facility]: Dose Right [facility]: CareDose [facility]: Dose Right [facility]: Teradose 4D [facility]: [employer] CONTRAST TYPE AND DOSE: contrast/concentration: Isovue 350.00 mg/ml; Total Contrast Delivered: 56.0 ml; Total Saline Delivered: 80.0 ml Contrast bolus optimized for the pulmonary arteries. Not diagnostic for the aorta. RENAL FUNCTION: GFR > 60. RADIATION DOSE: CT Rad equipment meets quality standard of care and radiation dose reduction techniq ues were employed. CTDIvol: 6.6 - 14.3 mGy. DLP: 544 mGy-cm. . LIMITATIONS: None. FINDINGS: LUNGS AND PLEURA: No pneumothorax. Small areas of basilar subsegmental atelectasis. Trac e left pleural effusion. Similar emphysema and right apical-subpleural scarring. . AORTA AND GREAT VESSELS: No aneurysm. Contrast bolus not optimized for the aorta. HEART: No pericardial effusion. No significant coronary artery calcifications. PULMONARY ARTERIES: No emboli visualized in the main pulmonary arteries or the segmental branches. HILAR AND MEDIASTINAL STRUCTURES: No identified masses or abnormal nodes. HARDWARE: None in the chest. UPPER ABDOMEN: No significant findings. Limited exam. THYROID AND OTHER SOFT TISSUES: No masses. No adenopathy. BONES: No acute finding. 3D MIPS: Confirm above findings. OTHER: No other significant finding. IMPRESSION: NO PULMONARY EMBOLI. Small areas of basilar subsegmental atelectasis. Trace left pleural effusion. COMMENT: Quality ID # [id number]: Final reports with documentation of one or more dose reduction techniques (e.g., Automated exposure control, adjustment of the mA and/or kV according to patient size, use of iterative reconstruction technique) TECHNICAL DOCUMENTATION: JOB ID: [id number] [place]-72 2010 [employer]- All Rights Reserved Reading location - IP/workstation name: [email or web address]
[2019-07-28] MEDS ORDERED: METHOCARBAMOL 500 MG TABLET PO ONE (16:56)
[2019-07-28] MEDS ORDERED: LIDOCAINE 5% (700 MG) TRANSDERMAL ADH..PATCH TP ONE (18:17)
[2019-07-28 18:37] VITALS: BP 146/82
--- NOTE | 2019-07-28 21:13 | EKG REPORT ---
SEVERITY:- OTHERWISE NORMAL ECG - SINUS TACHYCARDIA : Confirmed by: Enrique Odom MD 28-Jul-2019 21:12:51
== END 2019-07-28 18:39 | disposition home or self-care (01) ==
LOC: ER 11:46
DX: J90 Pleural effusion, not elsewhere classified (principal); R07.89 Other chest pain; R06.02 Shortness of breath; M79.10 Myalgia, unspecified site; R07.9 Chest pain, unspecified; M54.2 Cervicalgia; R00.0 Tachycardia, unspecified; Z20.828 Contact with and (suspected) exposure to other viral communicable diseases; F17.200 Nicotine dependence, unspecified, uncomplicated; Z88.1 Allergy status to other antibiotic agents; J44.9 Chronic obstructive pulmonary disease, unspecified
CPT/HCPCS: 93005; 94640; 99284; 96361; 96374; 96375; 36415; 83735; 85025; 87635; 80053; 84484; 71045; 71275; 93010; J3010; J2270; J7030; J7620; C9803

== ENCOUNTER 2019-10-26 18:23 | Emergency (ER) | payer OTHER, MEDICARE, MEDICAID ==
[2019-10-26] MEDS ORDERED: OXYCODONE-ACETAMINOPHEN 5-325 MG TABLET PO ONE (19:31)
--- NOTE | 2019-10-26 19:31 | ER Document Report ---
ED Medical Screen (RME) - General Chief Complaint: Ankle Injury Stated Complaint: ANKLE INJURY/PAIN Time Seen by Provider: 10/26/19 19:20 Primary Care Provider: LASHAWN MANRIQUE DO [Primary Care Provider] - Follow up as needed Mode of Arrival: Wheelchair Information source: Patient Notes: 59-year-old male presented to ED for increasing pain and swelling to the right f oot and ankle for last 3 days. He states he has not fallen he has not done anything to the ankle recently. He states he did previously have a fracture and dislocation of the right ankle and had plates and screws that were later removed. He states he is also had right kidney cancer and half of his kidney was removed has had a left inguinal hernia repair has had tonsils and adenoids removed and all of his teeth surgically removed. He states he does smoke 8 cigarettes a day does not drink or do any illicit drugs. He is alert oriented respirations regular nonlabored speaking in full sentences. He does not have a palpable dorsalis pedis on the right foot. He his foot is discolored and extremely tender to any palpation to anywhere on the foot. Will order a venous Doppler and arterial Doppler to the right foot will order lab work as well. I have greeted and performed a rapid initial assessment of this patient. A comprehensive ED assessment and evaluation of the patient, analysis of test results and completion of medical decision making process will be conducted by an additional ED providers. TRAVEL OUTSIDE OF THE [place] IN LAST 30 DAYS: No - Related Data Allergies/Adverse Reactions: erythromycin base Allergy (Verified 08/27/15 15:02) Past Medical History - Past Medical History Cardiac Medical History: Reports: Hx DVT, Hx Hypertension Pulmonary Medical History: Reports: Hx COPD Renal/ Medical History: Denies: Hx Peritoneal Dialysis Malignancy Medical History: Reports Hx Renal (Kidney) Cancer GI Medical History: Reports: Hx Gastroesophageal Reflux Disease Musculoskeltal Medical History: Reports Hx Arthritis Traumatic Medical History: Reports: Hx Fractures Past Surgical History: Reports: Hx Kidney (Renal Surgery) - R kidney removed, Hx Orthopedic Surgery - right ankle sx and metal removal on 05/2016., Hx Tonsillectomy, Other - Left inguinal hernia repair and right partial nephrectomy. Physical Exam - Vital signs Vitals: Temp Pulse Resp BP Pulse Ox 98.1 F 109 H 18 136/79 H 100 10/26/19 18:34 10/26/19 18:34 10/26/19 18:34 10/26/19 18:34 10/26/19 18:34 Course - Vital Signs Vital signs: Temp Pulse Resp BP Pulse Ox 98.1 F 109 H 18 136/79 H 100 10/26/19 18:34 10/26/19 18:34 10/26/19 18:34 10/26/19 18:34 10/26/19 18:34 Doctor's Discharge - Discharge Referrals: LASHAWN MANRIQUE DO [Primary Care Provider] - Follow up as needed
[2019-10-26 21:04] LABS: ABSOLUTE BASOPHILS # (AUTO) 0.1 10^3/uL (0.0-0.2); ABSOLUTE EOSINOPHILS # (AUTO) 0.1 10^3/uL (0.0-0.6); ABSOLUTE LYMPHOCYTES (AUTO) 3.7 10^3/uL (0.5-4.7); ABSOLUTE MONOCYTES (AUTO) 0.7 10^3/uL (0.1-1.4); ABSOLUTE NEUT (AUTO) 6.4 10^3/uL (1.7-8.2); BASOPHILS % (AUTO) 1.2 % (0-2); EOSINOPHILS % (AUTO) 0.7 % (0-6); HEMATOCRIT 45.4 % (37.9-51.0); HEMOGLOBIN 15.7 g/dL (13.5-17.0); LYMPHOCYTES % (AUTO) 33.4 % (13-45); MEAN CORPUSCULAR HEMOGLOBIN 29.5 pg (27.0-33.4); MEAN CORPUSCULAR HGB CONC 34.5 g/dL (32.0-36.0); MEAN CORPUSCULAR VOLUME 86 fl (80-97); MONOCYTES % (AUTO) 6.5 % (3-13); PLATELET COUNT 213 10^3/uL (150-450); RED BLOOD COUNT 5.31 10^6/uL (4.35-5.55); RED CELL DISTRIBUTION WIDTH 14.2 % (11.5-14.0); SEGMENTED NEUTROPHILS % (AUTO) 58.2 % (42-78); TOTAL CELLS COUNTED % (AUTO) 100 %
[2019-10-26] MEDS ORDERED: HYDROMORPHONE HCL INJ/PF 2 MG/ML AMPULE IV ONE (21:12)
[2019-10-26] MEDS ORDERED: ONDANSETRON HCL INJ/PF 4 MG/2 ML SDV IV ONE (21:13)
[2019-10-26 21:14] LABS: ALBUMIN 4.9 g/dL (3.5-5.0); ALKALINE PHOSPHATASE 68 U/L (38-126); ANION GAP 11 (5-19); ASPARTATE AMINO TRANSFERASE 20 U/L (17-59); BILIRUBIN,DIRECT 0.3 mg/dL (0.0-0.4); BILIRUBIN,TOTAL 0.7 mg/dL (0.2-1.3); BLOOD UREA NITROGEN 25 mg/dL (7-20); CALCIUM 9.7 mg/dL (8.4-10.2); CARBON DIOXIDE 27 mmol/L (22-30); CHLORIDE 103 mmol/L (98-107); GLUCOSE 90 mg/dL (75-110); POTASSIUM 4.9 mmol/L (3.6-5.0); TOTAL PROTEIN 8.3 g/dL (6.3-8.2)
[2019-10-26 21:18] LABS: INTERNATIONAL RATION (INR) 0.94; PROTHROMBIN TIME 12.8 SEC (11.4-15.4)
--- NOTE | 2019-10-26 21:22 | ER Document Report ---
Entered by RENEE LAROSE SCRIBE 10/26/[id number] Acting as scribe for:CE LEVINE IV, MD ED Extremity Problem, Lower - General Chief Complaint: Ankle Pain Stated Complaint: ANKLE INJURY/PAIN Time Seen by Provider: 10/26/19 19:20 Primary Care Provider: LASHAWN MANRIQUE DO [NO LOCAL MD] - Follow up as needed Mode of Arrival: Wheelchair Information source: Patient Notes: This 59 year old male patient with a history of DVT, not on any blood thinners, presents to the ED today with complaints pain and swelling to his right foot and ankle that started x3 days ago. Patient states "it feels like a ring is around my ankle and it's squeezing" and that he is unable to bear weight. Denies recent fall or injury. He reports previous surgery to that ankle related to a prior fracture and dislocation; however, the plates and screws that were placed were removed. Denies any other complaints. TRAVEL OUTSIDE OF THE [place] IN LAST 30 DAYS: No - Related Data Allergies/Adverse Reactions: erythromycin base Allergy (Verified 10/26/19 19:29) Past Medical History - General Information source: Patient - Social History Smoking Status: Current Every Day Smoker Smoking Education Provided: No Frequency of alcohol use: None Drug Abuse: None Family History: Reviewed & Not Pertinent Patient has suicidal ideation: No Patient has homicidal ideation: No - Past Medical History Cardiac Medical History: Reports: Hx DVT, Hx Hypertension Pulmonary Medical History: Reports: Hx COPD Malignancy Medical History: Reports Hx Renal (Kidney) Cancer GI Medical History: Reports: Hx Gastroesophageal Reflux Disease Musculoskeletal Medical History: Reports Hx Arthritis Traumatic Medical History: Reports: Hx Fractures Past Surgical History: Reports: Hx Adenoidectomy, Hx Inguinal Hernia - Left, Hx Kidney (Renal Surgery) - R partial nephrectomy, Hx Orthopedic Surgery - right ankle sx and metal removal on 05/2016., Hx Tonsillectomy, Other Review of Systems - Review of Systems Constitutional: No symptoms reported EENT: No symptoms reported Cardiovascular: No symptoms reported Respiratory: No symptoms reported Gastrointestinal: No symptoms reported Genitourinary: No symptoms reported Male Genitourinary: No symptoms reported Musculoskeletal: See HPI, Joint pain, Joint swelling, Leg swelling Skin: No symptoms reported Hematologic/Lymphatic: No symptoms reported Neurological/Psychological: No symptoms reported -: Yes All other systems reviewed and negative Physical Exam - Vital signs Vitals: Temp Pulse Resp BP Pulse Ox 98.1 F 109 H 18 136/79 H 100 10/26/19 18:34 10/26/19 18:34 10/26/19 18:34 10/26/19 18:34 10/26/19 18:34 - General General appearance: Alert In distress: None - HEENT Head: Normocephalic, Atraumatic Eyes: Normal Extraocular movements intact: Yes Pupils: PERRL - Respiratory Respiratory status: No respiratory distress Chest status: Nontender Breath sounds: Normal Chest palpation: Normal - Cardiovascular Rhythm: Regular Heart sounds: Normal auscultation Murmur: No Friction rub: No Gallop: None auscultated - Abdominal Inspection: Normal Distension: No distension Bowel sounds: Normal Tenderness: Nontender - Abdomen soft Organomegaly: No organomegaly - Back Back: Normal, Nontender - Extremities Ankle: No: Normal - Pallor, pulselessness, and pain from the right ankle down Foot: Tender - Exquisitely tender to palpation anywhere on the right foot, Other - Cap refill > 3 seconds in all toes of right foot - Neurological Neuro grossly intact: Yes Orientation: AAOx4 Ha Coma Scale Eye Opening: Spontaneous Ha Coma Scale Verbal: Oriented Driscoll Coma Scale Motor: Obeys Commands Ha Coma Scale Total: 15 - Psychological Associated symptoms: Normal affect, Normal mood - Skin Skin Temperature: Warm Skin Moisture: Dry Skin Color: Normal Course - Re-evaluation Re-evalutation: 10/26/19 22:31 Results of ED MSE discussed with patient. All questions were answered prior to discharge. Emergency signs and symptoms, reasons to return to the emergency department discussed with patient. Preliminary read of arterial lower extremity ultrasound 7 venous Doppler ultrasounds of both negative for acute thrombus or embolism per manager risk read. 10/26/19 22:32 - Vital Signs Vital signs: Temp Pulse Resp BP Pulse Ox 98.1 F 109 H 18 136/79 H 100 10/26/19 19:27 10/26/19 18:34 10/26/19 18:34 10/26/19 18:34 10/26/19 18:34 - Laboratory Result Diagrams: 10/26/19 20:45 10/26/19 20:45 Laboratory results interpreted by me: 10/26/19 10/26/19 20:45 20:45 WBC 11.0 H RDW 14.2 H BUN 25 H Total Protein 8.3 H Discharge - Discharge Clinical Impression: Neuropathy Condition: Stable Disposition: HOME, SELF-CARE Additional Instructions: Return to the Emergency Department without delay if any worse. HOME CARE INSTRUCTIONS & INFORMATION: Thank you for choosing us for your medical needs. We hope you're satisfied with the care you received. After you leave, you must properly care for your problem and, at the same time, observe its progress. Any condition can change. Some illnesses can change rapidly over hours or days. If your condition worsens, return to the Emergency Department or see your physician promptly. ABOUT YOUR X-RAYS AND EKG'S: If you had an EKG or X-rays taken, they have been read by the Emergency Physician. The X-rays and EKG's will also be read by a Radiologist or Value Engineer within 24 hours. If discrepancies are noted, you will be notified by telephone. Please be certain the ED has a correct telephone number & address where you can be reached. Also, realize that some fractures or abnormalities do not show up on initial X-rays. If your symptoms continue, see your physician. ABOUT YOUR LABORATORY TEST: If you had laboratory tests, the results have been reviewed by the Emergency Physician. Some test results (for example cultures) may not be available for several days. You will be contacted if any test result shows you need additional treatment. Please be certain the ED has a correct telephone number and address where you can be reached. ABOUT YOUR MEDICATIONS: You will receive instructions on how to take your medicine on the prescription label you receive. Additional information may be provided by the Pharmacy. If you have questions afterwards, call the ED for clarification or further instructions. Some prescribed medications may cause drowsiness. Do not perform tasks such as driving a car or operating machinery without consulting your Pharmacist. If you feel you need a refill of pain medication, your condition will need re-evaluation. Please do not call for a refill of any medication. ABOUT YOUR SIGNATURE: Signature of this document acknowledges to followin. Understanding that you received emergency treatment and that you may be released before al medical problems are known or treated. Please be certain the ED has a correct phone number & address where you can be reached. 2. Acknowledgement that you will arrange for follow-up care as recommended. 3. Authorization for the Emergency Physician to provide information to your follow-up Physician in order to maximize your care. AT ANY TIME, IF YOUR SYMPTOMS CHANGE SIGNIFICANTLY OR WORSEN OR YOU DEVELOP NEW SYMPTOMS, RETURN TO THE EMERGENCY DEPARTMENT IMMEDIATELY FOR RE-EVALUATION. OUR GOAL IS TO PROVIDE EXCELLENT MEDICAL CARE! WE HOPE THAT WE HAVE MET YOUR EXPECTATIONS DURING YOUR EMERGENCY DEPARTMENT VISIT AND THAT YOU FEEL YOU HAVE RECEIVED EXCELLENT CARE! Prescriptions: Oxycodone HCl/Acetaminophen [Percocet 5-325 mg Tablet] 1 tab PO Q6HP PRN #12 tablet PRN Reason: Oxycodone HCl/Acetaminophen [Percocet 5-325 mg Tablet] 1 tab PO Q6HP PRN #12 tablet PRN Reason: Referrals: RUBY DEL CID MD [ACTIVE STAFF] - 10/28/19 (call office 10/28/2019 to schedule appointment to establish care) I personally performed the services described in the documentation, reviewed and edited the documentation which was dictated to the scribe in my presence, and it accurately records my words and actions.
[2019-10-26] MEDS ORDERED: HYDROCODONE/ACETAMINOPHEN 5-325 MG TABLET PO ONE (22:30)
[2019-10-26] MEDS ORDERED: HYDROCODONE/ACETAMINOPHEN 5-325 MG (6 TAB/ER DISP) PO PRN (22:30)
[2019-10-26 23:12] VITALS: BP 133/76
--- NOTE | 2019-10-26 23:38 | RADIOLOGY REPORT (SQ) ---
Right lower extremity venous Doppler ultrasound: 10/26/2019 10:36 PM CDT TECHNIQUE: Multiple grayscale and spectral Doppler images of the right lower extremity veins were obtained. HISTORY: 79-year-old patient with right lower extremity pain and swelling. FINDINGS: Normal compressibility and color Doppler images of the right common femoral, femoral, popliteal veins were seen. The visualized soft tissues appear grossly unremarkable. There are no findings to suggest deep vein thrombosis. No superficial vein thrombus is seen. IMPRESSION: There are no findings to suggest deep vein thrombosis within the right lower extremity.
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
== END 2019-10-26 23:00 | disposition home or self-care (01) ==
LOC: ER 18:23
DX: G62.9 Polyneuropathy, unspecified (principal); M79.671 Pain in right foot; M25.571 Pain in right ankle and joints of right foot; M79.89 Other specified soft tissue disorders; M25.471 Effusion, right ankle; Z86.718 Personal history of other venous thrombosis and embolism; Z98.890 Other specified postprocedural states; Z85.528 Personal history of other malignant neoplasm of kidney; Z90.5 Acquired absence of kidney; Z88.1 Allergy status to other antibiotic agents
CPT/HCPCS: 36415; 80053; 85025; 85610; 85730; 93926; 93971; 99284

== ENCOUNTER 2019-11-13 10:58 | Observation (INO) | payer OTHER, MEDICARE, MEDICAID ==
[2019-11-13] MEDS ORDERED: NORMAL SALINE 1000 ML 1,000 ML IV ONE ×2 (11:34→13:47)
[2019-11-13 12:43] LABS: ABSOLUTE BASOPHILS # (AUTO) 0.1 10^3/uL (0.0-0.2); ABSOLUTE LYMPHOCYTES (AUTO) 2.4 10^3/uL (0.5-4.7); ABSOLUTE MONOCYTES (AUTO) 0.8 10^3/uL (0.1-1.4); BASOPHILS % (AUTO) 0.8 % (0-2); EOSINOPHILS % (AUTO) 0.2 % (0-6); HEMATOCRIT 42.6 % (37.9-51.0); HEMOGLOBIN 14.8 g/dL (13.5-17.0); MEAN CORPUSCULAR HEMOGLOBIN 29.7 pg (27.0-33.4); MEAN CORPUSCULAR HGB CONC 34.6 g/dL (32.0-36.0); MEAN CORPUSCULAR VOLUME 86 fl (80-97); MONOCYTES % (AUTO) 6.2 % (3-13); PLATELET COUNT 188 10^3/uL (150-450); RED BLOOD COUNT 4.98 10^6/uL (4.35-5.55); RED CELL DISTRIBUTION WIDTH 14.3 % (11.5-14.0); SEGMENTED NEUTROPHILS % (AUTO) 74.8 % (42-78); TOTAL CELLS COUNTED % (AUTO) 100 %; WHITE BLOOD COUNT 13.3 10^3/uL (4.0-10.5)
[2019-11-13 13:08] LABS: ALBUMIN 4.6 g/dL (3.5-5.0); ALKALINE PHOSPHATASE 59 U/L (38-126); ANION GAP 11 (5-19); ASPARTATE AMINO TRANSFERASE 44 U/L (17-59); BILIRUBIN,DIRECT 0.3 mg/dL (0.0-0.4); BILIRUBIN,TOTAL 0.9 mg/dL (0.2-1.3); BLOOD UREA NITROGEN 15 mg/dL (7-20); CALCIUM 9.7 mg/dL (8.4-10.2); CARBON DIOXIDE 26 mmol/L (22-30); CHLORIDE 104 mmol/L (98-107); GLUCOSE 100 mg/dL (75-110); POTASSIUM 5.4 mmol/L (3.6-5.0); TOTAL PROTEIN 7.7 g/dL (6.3-8.2)
[2019-11-13 13:09] LABS: ALCOHOL < 10 mg/dL (NONE DETECTED)
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
[2019-11-13] MEDS ORDERED: ACETAMINOPHEN 325 MG TABLET PO ONE (13:57)
[2019-11-13] MEDS ORDERED: MORPHINE SULFATE 10 MG/ML INJ IV ONE ×2 (14:14→14:20)
[2019-11-13 14:34] LABS: APPEARANCE,URINE SLIGHTLY-CLOUDY; BILIRUBIN,URINE NEGATIVE (NEGATIVE); COLOR,URINE YELLOW; GLUCOSE, URINE NEGATIVE (NEGATIVE); KETONES,URINE NEGATIVE (NEGATIVE); PROTEIN,URINE 30 mg/dL (NEGATIVE); URINE SPECIFIC GRAVITY 1.018; UROBILINOGEN,URINE NEGATIVE mg/dL (<2.0)
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
[2019-11-13 14:50] LABS: URINE AMPHETAMINES SCREEN NEGATIVE; URINE BARBITURATES SCREEN NEGATIVE; URINE COCAINE SCREEN NEGATIVE; URINE MARIJUANA (THC) SCREEN NEGATIVE; URINE METHADONE SCREEN NEGATIVE; URINE PHENCYCLIDINE SCREEN NEGATIVE
[2019-11-13 14:51] LABS: URINE BENZODIAZEPINES SCREEN UNCONFIRMED POSITIVE
--- NOTE | 2019-11-13 14:51 | RADIOLOGY REPORT (SQ) ---
EXAM DESCRIPTION: CHEST SINGLE VIEW IMAGES COMPLETED DATE/TIME: 11/13/2019 2:37 pm REASON FOR STUDY: pain COMPARISON: None. EXAM PARAMETERS: NUMBER OF VIEWS: One view. TECHNIQUE: Single frontal radiographic view of the chest acquired. RADIATION DOSE: NA LIMITATIONS: None. FINDINGS: LUNGS AND PLEURA: No opacities, masses or pneumothorax. No pleural effusion. MEDIASTINUM AND HILAR STRUCTURES: No masses. Contour normal. No evidence of pneumomediastinum. HEART AND VASCULAR STRUCTURES: Heart normal in size. Normal vasculature. BONES: No acute findings. HARDWARE: None in the chest. OTHER: No other significant finding. IMPRESSION: No acute findings. TECHNICAL DOCUMENTATION: JOB ID: [id number] 2010 [employer]- All Rights Reserved Reading location - IP/workstation name: [email or web address]
[2019-11-13] MEDS ORDERED: ONDANSETRON HCL INJ/PF 4 MG/2 ML SDV IV PRN (15:32)
[2019-11-13] MEDS ORDERED: OXYCODONE HCL IR 5 MG TABLET PO PRN ×2 (15:38→15:43)
[2019-11-13] MEDS ORDERED: HYDROMORPHONE HCL INJ/PF 2 MG/ML AMPULE IV PRN (15:39)
[2019-11-13] MEDS: HYDROMORPHONE HCL INJ/PF 2 MG/ML AMPULE IV PRN ×2 (15:57→23:45)
[2019-11-13] MEDS: NORMAL SALINE 1000 ML 1,000 ML IV PRN ×2 (15:58→23:52)
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
[2019-11-13] MEDS ORDERED: HYDROMORPHONE HCL INJ/PF 2 MG/ML AMPULE IV ONE (16:15)
[2019-11-13] MEDS: OXYCODONE HCL IR 5 MG TABLET PO PRN (18:09)
--- NOTE | 2019-11-13 19:05 | EKG REPORT ---
SEVERITY:- OTHERWISE NORMAL ECG - SINUS TACHYCARDIA : Confirmed by: Mariola Medellin 13-Nov-2019 19:04:36
--- NOTE | 2019-11-13 19:05 | EKG REPORT ---
SEVERITY:- NORMAL ECG - SINUS RHYTHM : Confirmed by: Mariola Medellin 13-Nov-2019 19:04:41
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
[2019-11-13] MEDS ORDERED: IPRATROPIUM/ALBUTEROL 0.5-2.5 MG/3 ML AMPUL NEB PRN (19:11)
[2019-11-13] MEDS: NICOTINE 21 MG/24 HR PATCH.TD24 TD SCH (19:47)
[2019-11-13] MEDS: FAMOTIDINE 20 MG TABLET PO SCH (21:21)
[2019-11-13] MEDS: ACETAMINOPHEN 1,000 MG/100 ML RTUPB IV SCH (21:21)
[2019-11-14] MEDS: OXYCODONE HCL IR 5 MG TABLET PO PRN ×3 (02:34→14:03)
[2019-11-14] MEDS: ACETAMINOPHEN 1,000 MG/100 ML RTUPB IV SCH ×2 (05:30→13:28)
[2019-11-14 05:33] LABS: ABSOLUTE BASOPHILS # (AUTO) 0.1 10^3/uL (0.0-0.2); ABSOLUTE EOSINOPHILS # (AUTO) 0.1 10^3/uL (0.0-0.6); ABSOLUTE LYMPHOCYTES (AUTO) 2.7 10^3/uL (0.5-4.7); ABSOLUTE MONOCYTES (AUTO) 0.6 10^3/uL (0.1-1.4); ABSOLUTE NEUT (AUTO) 3.4 10^3/uL (1.7-8.2); BASOPHILS % (AUTO) 1.1 % (0-2); EOSINOPHILS % (AUTO) 1.9 % (0-6); HEMATOCRIT 35.4 % (37.9-51.0); LYMPHOCYTES % (AUTO) 38.5 % (13-45); MEAN CORPUSCULAR HEMOGLOBIN 29.9 pg (27.0-33.4); MEAN CORPUSCULAR VOLUME 85 fl (80-97); MONOCYTES % (AUTO) 9.3 % (3-13); PLATELET COUNT 142 10^3/uL (150-450); RED BLOOD COUNT 4.15 10^6/uL (4.35-5.55); RED CELL DISTRIBUTION WIDTH 14.6 % (11.5-14.0); SEGMENTED NEUTROPHILS % (AUTO) 49.2 % (42-78); TOTAL CELLS COUNTED % (AUTO) 100 %; WHITE BLOOD COUNT 6.9 10^3/uL (4.0-10.5)
[2019-11-14 05:34] LABS: HEMOGLOBIN 12.4 g/dL (13.5-17.0)
[2019-11-14 05:45] LABS: ANION GAP 5 (5-19); BLOOD UREA NITROGEN 14 mg/dL (7-20); CALCIUM 8.5 mg/dL (8.4-10.2); CARBON DIOXIDE 20 mmol/L (22-30); CHLORIDE 113 mmol/L (98-107); GLUCOSE 96 mg/dL (75-110); POTASSIUM 4.5 mmol/L (3.6-5.0)
[2019-11-14] MEDS: NORMAL SALINE 1000 ML 1,000 ML IV PRN (06:40)
[2019-11-14] MEDS: HYDROMORPHONE HCL INJ/PF 2 MG/ML AMPULE IV PRN ×2 (08:04→12:22)
[2019-11-14] MEDS ORDERED: ENOXAPARIN SODIUM INJ 30 MG/0.3 ML DISP.SYRIN SUBCUT SCH (10:00)
[2019-11-14] MEDS: NICOTINE 21 MG/24 HR PATCH.TD24 TD SCH (10:25)
[2019-11-14] MEDS: FAMOTIDINE 20 MG TABLET PO SCH (10:25)
--- NOTE | 2019-11-14 12:41 | Operative Report ---
Nonrecallable Operative Report DATE OF SURGERY: 11/14/19 PREOPERATIVE DIAGNOSIS: Esophagojejunal anastomotic leak POSTOPERATIVE DIAGNOSIS: Esophagojejunal anastomotic leak OPERATION: Campos flex esophageal stent placement SURGEON: DENVER EDWARD 1[employer]UC[employer] SYSTEM OPERATOR: JC PENALOZA ANESTHESIA: GA TISSUE REMOVED OR ALTERED: None COMPLICATIONS: None ESTIMATED BLOOD LOSS: 0 INTRAOPERATIVE FINDINGS: See note PROCEDURE: Patient was brought to the operating awake alert stable condition placed in the operative supine position induced under general anesthesia intubated. after appropriate timeout site verification procedure commenced. The Olympus gastroscope was passed into the posterior pharynx and into the upper upper esophagus. As we traversed the upper esophagus appeared to be normal and we reached the GE junction at the GE junction we noted the previously done this esophageal jejunal anastomotic staple line. With the Corey-Parra drain penetrating the anastomosis and lying within the lumen of the small bowel. We passed the scope past the leak past the drain and into the distal small intestine making sure that this was the efferent limb of jejunum. We took appropriate measurements for our [employer] wall flex stent which was a 15 cm stent. We then passed a wire through the scope and allowed to lie in the distal small bowel as we remove the scope. Over the wire we then placed the wall flex esophageal stent carrier system placed it into the appropriate position and fired the stent. Spent had good positioning. We remove the carrier system and then used the gastroscope to pass into the stent and through the stent into the efferent small bowel. There was satisfactory position of the stent over the leak we then remove the Corey-Parra drain from the abdominal wall. Sterile dressing was applied at that site. The patient was then awakened in the operating extubated transferred recovery in stable condition no complications. STIVEN Royal was present for the entire case for helping assist with the manipulation of the scope and the stent.
--- NOTE | 2019-11-14 12:56 | RADIOLOGY REPORT (SQ) ---
EXAM DESCRIPTION: CHEST SINGLE VIEW IMAGES COMPLETED DATE/TIME: 11/14/2019 8:31 am REASON FOR STUDY: shortness of breath COMPARISON: 11/13/2019 EXAM PARAMETERS: NUMBER OF VIEWS: One view. TECHNIQUE: Single frontal radiographic view of the chest acquired. RADIATION DOSE: NA LIMITATIONS: None. FINDINGS: LUNGS AND PLEURA: There is limited somewhat linear opacification in each lung base. MEDIASTINUM AND HILAR STRUCTURES: No masses. Contour normal. HEART AND VASCULAR STRUCTURES: Heart normal in size. Normal vasculature. BONES: No acute findings. HARDWARE: None in the chest. OTHER: No other significant finding. IMPRESSION: Cannot exclude limited airspace disease in each lung base, atelectasis versus pneumonia. TECHNICAL DOCUMENTATION: JOB ID: [id number] [employer]- All Rights Reserved Reading location - IP/workstation name: [email or web address]
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
[2019-11-14 14:23] VITALS: BP 117/72
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
== END 2019-11-14 14:51 | disposition home or self-care (01) ==
LOC: ER 10:58 → EH 16:30 → 4N 17:32
DX: S22.22XA Fracture of body of sternum, initial encounter for closed fracture (principal); S06.0X9A Concussion with loss of consciousness of unspecified duration, initial encounter; S23.29XA Dislocation of other parts of thorax, initial encounter; F19.11 Other psychoactive substance abuse, in remission; F17.210 Nicotine dependence, cigarettes, uncomplicated; S01.81XA Laceration without foreign body of other part of head, initial encounter; V49.40XA Driver injured in collision with unspecified motor vehicles in traffic accident, initial encounter; N17.9 Acute kidney failure, unspecified; J43.9 Emphysema, unspecified; F12.90 Cannabis use, unspecified, uncomplicated; E87.5 Hyperkalemia; I95.89 Other hypotension; I10 Essential (primary) hypertension; E86.0 Dehydration; K21.9 Gastro-esophageal reflux disease without esophagitis; R00.0 Tachycardia, unspecified; M19.90 Unspecified osteoarthritis, unspecified site; Z90.5 Acquired absence of kidney; Z85.528 Personal history of other malignant neoplasm of kidney; Z86.718 Personal history of other venous thrombosis and embolism
CPT/HCPCS: 99406; 93005; 99291; 96361; 96374; 96375; 36415 ×2; 80307 ×2; 85025 ×2; 80048; 80053; 81001; 84484; 71045 ×2; 70450; 71275; 72125; 74177; 94799; 93010; G0378 ×3; J2270; J1170 ×2; J7030 ×2; J0131 ×2

== ENCOUNTER → 2019-11-25 | Outpatient (CLI) | payer OTHER, MEDICARE, MEDICAID ==
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
== END ==
LOC: RAD 14:08
PROVIDERS: ATTEND Surgery
DX: Z09 Encounter for follow-up examination after completed treatment for conditions other than malignant neoplasm (principal); Z87.81 Personal history of (healed) traumatic fracture
CPT/HCPCS: 71046